=== PATIENT | male | born 1965 | race African-American/Black ===

== ENCOUNTER 2020-06-03 21:18 | Emergency (ER) | payer MEDICAID ==
[~2020-06-03] VITALS: Ht 175.3 cm; Wt 75.0 kg
[2020-06-03 23:05] VITALS: BP 116/68
== END 2020-06-03 23:06 | disposition home or self-care (01) ==
LOC: ER 21:18
DX: Z46.82 Encounter for fitting and adjustment of non-vascular catheter (principal); N18.6 End stage renal disease; Z99.2 Dependence on renal dialysis
CPT/HCPCS: 99281

== ENCOUNTER 2020-07-03 19:54 | Emergency (ER) | payer MEDICAID ==
[~2020-07-03] VITALS: Ht 182.9 cm; Wt 65.0 kg
[2020-07-03] MEDS ORDERED: SODIUM CHLORIDE 0.9% 1,000 ML IV ONE (21:00)
[2020-07-03] MEDS ORDERED: ACETAMINOPHEN 325MG TABLET PO ONE (21:00)
[2020-07-03 21:50] LABS: BASOPHILS % 0.4 % (0.0-2.0); EOSINOPHILS % 3.1 % (0.0-5.0); HEMATOCRIT. 32.7 % (42.0-52.0); HEMOGLOBIN. 11.1 g/dL (14.0-18.0); LYMPHOCYTES % 18.1 % (20.0-50.0); MEAN CORPUSCULAR HEMOGLOBIN 29.4 pg (28.0-32.0); MEAN CORPUSCULAR VOLUME 86.9 fL (80.0-94.0); MEAN PLATELET VOLUME 9.2 fl (7.4-10.4); MONOCYTES % 6.6 % (2.0-8.0); NEUTROPHILS % 71.8 % (40.0-76.0); PLATELET 291 x1000/uL (130-400); RED BLOOD CELL COUNT 3.77 mill/uL (4.7-6.1); RED CELL DISTRIBUTION WIDTH 14.7 % (11.6-14.6)
[2020-07-03 21:57] LABS: CHLORIDE 111 mEq/L (98-107)
[2020-07-03 22:51] LABS: CLARITY URINE CLEAR (CLEAR); COLOR URINE YELLOW (YELLOW); KETONES URINE NEGATIVE (NEGATIVE); LEUKOCYTE ESTERASE URINE NEGATIVE (NEGATIVE); NITRITE URINE NEGATIVE (NEGATIVE); OCCULT BLOOD URINE NEGATIVE (NEGATIVE); PROTEIN URINE 1+ (NEGATIVE); SPECIFIC GRAVITY URINE 1.025 (1.005-1.030)
[2020-07-04 00:44] VITALS: BP 121/66
== END 2020-07-04 00:45 | disposition home or self-care (01) ==
LOC: ER 20:06
DX: R50.9 Fever, unspecified (principal); K21.9 Gastro-esophageal reflux disease without esophagitis; Z86.73 Personal history of transient ischemic attack (TIA), and cerebral infarction without residual deficits
CPT/HCPCS: 36415; 71045; 80053; 81003; 83605; 83690; 84484; 85025; 87040; 96360; 96361; 99284; J7030

== ENCOUNTER 2023-11-30 09:49 | Emergency (ER) | payer MEDICAID ==
[~2023-11-30] VITALS: Ht 175.3 cm; Wt 77.0 kg
[2023-11-30 09:52] VITALS: O2SAT 100
[2023-11-30] MEDS: IBUPROFEN 600MG TABLET PO STA (10:14)
[2023-11-30 10:55] LABS: INR 0.9; PARTIAL THROMBOPLASTIN TIME < 21.0 sec (23.4-31.0); PROTHROMBIN TIME 9.9 sec (9.6-11.0)
[2023-11-30 10:57] LABS: CARBON DIOXIDE 22 mEq/L (21-32); CHLORIDE 107 mEq/L (98-107); POTASSIUM 4.2 mEq/L (3.5-5.1); SODIUM 136 mEq/L (136-145)
[2023-11-30 10:58] LABS: CALCIUM 9.1 mg/dL (8.7-10.4)
[2023-11-30] MEDS: AMOXICILLIN 500 MG CAPSULE PO ONE (10:58)
[2023-11-30 11:03] LABS: GLUCOSE 92 mg/dL (70-105); UREA NITROGEN BLOOD 9 mg/dL (9-23)
[2023-11-30 11:04] LABS: ALANINE AMINOTRANSFERASE 9 IU/L (10-49)
[2023-11-30 11:05] LABS: ALBUMIN 4.4 g/dL (3.2-4.8); ASPARTATE AMINOTRANSFERASE 25 IU/L (<34); BILIRUBIN TOTAL 0.3 mg/dL (0.1-1.0); PROTEIN TOTAL 7.2 g/dL (6.0-8.3); TROPONIN I HIGH SENSITIVITY < 4 ng/L (3.0-53)
[2023-11-30 11:21] LABS: BASOPHILS % 0.4 % (0.0-2.0); EOSINOPHILS % 3.1 % (0.0-5.0); HEMATOCRIT. 42.2 % (42.0-52.0); HEMOGLOBIN. 14.1 g/dL (14.0-18.0); LYMPHOCYTES % 38.1 % (20.0-50.0); MEAN CORPUSCULAR HEMOGLOBIN 31.1 pg (28.0-32.0); MEAN CORPUSCULAR HGB CONC 33.5 g/dL (31.0-37.0); MONOCYTES % 6.4 % (2.0-8.0); RED BLOOD CELL COUNT 4.54 mill/uL (4.7-6.1); RED CELL DISTRIBUTION WIDTH 14.4 % (11.6-14.6); WHITE BLOOD COUNT 5.9 x1000/uL (4.5-11.0)
[2023-11-30] MEDS ORDERED: AMOX-494 MT (11:35)
[2023-11-30 11:38] LABS: DIFFERENTIAL COMMENT 1
[2023-11-30 12:32] VITALS: BP 115/62; PULSE 64; RESP 18; TEMP 98.6
[2023-11-30 12:46] LABS: PLATELET 197 x1000/uL (130-400)
== END 2023-11-30 12:35 | disposition home or self-care (01) ==
LOC: ER 10:32
DX: R55 Syncope and collapse (principal); H66.91 Otitis media, unspecified, right ear; Z86.73 Personal history of transient ischemic attack (TIA), and cerebral infarction without residual deficits; W18.30XA Fall on same level, unspecified, initial encounter; Y93.89 Activity, other specified; Y92.89 Other specified places as the place of occurrence of the external cause; Y99.8 Other external cause status
CPT/HCPCS: 80053; 83880; 85025; 85610; 85730; 84484; 36415; 93005; 99284; Z7610 ×3